=== PATIENT | female | born 1950 | race Caucasian/White ===

== ENCOUNTER 2019-06-09 12:23 | Emergency (ER) | payer MEDICARE ==
--- NOTE | 2019-06-09 13:57 | EDM.PDOC ---
ED HPI GENERAL MEDICAL PROBLEM - General Chief Complaint: Cardiovascular Problem Stated Complaint: HIGH BLOOD PRESSURE Time Seen by Provider: 06/09/19 13:30 Source of Information: Reports: Patient History Limitations: Reports: No Limitations - History of Present Illness INITIAL COMMENTS - FREE TEXT/NARRATIVE: 61-year-old female with a long history of hypertension, is concerned that her blood pressure is much more elevated this week and then it typically is. 2 days ago she had a near syncopal episode while at an outdoor event, and since that time she's been taking her blood pressure and it continues to be elevated. Her systolic is running anywhere from the 150-160 range up to 200 which is unusual. She feels a little lightheaded but otherwise feels fine. She denies getting into extra salt. She just put her dog down less than 2 weeks ago and it's been very stressful. Onset: Unknown/Unsure Associated Symptoms: Reports: Syncope (A near syncopal episode 2 days ago), Other (Mild dizziness or lightheaded feeling). Denies: Chest Pain, Cough, Diaphoresis - Related Data Allergies Allergy/AdvReac Type Severity Reaction Status Date / Time No Known Allergies Allergy Verified 02/03/14 16:43 Home Meds: Home Meds Folic Acid 1 mg PO DAILY 06/09/19 [History] Losartan Potassium 100 mg PO DAILY 06/09/19 [History] Methotrexate Sodium [Methotrexate] 2.5 mg PO DAILY 06/09/19 [History] Metoprolol Tartrate 100 mg PO DAILY 06/09/19 [History] Omeprazole 40 mg PO DAILY 06/09/19 [History] hydroCHLOROthiazide [Hydrochlorothiazide] 25 mg PO DAILY 06/09/19 [History] Past Medical History Cardiovascular History: Reports: Hypertension Gastrointestinal History: Reports: GERD Genitourinary History: Reports: UTI, Recurrent Musculoskeletal History: Reports: Other (See Below) Other Musculoskeletal History: RA, disorder of bone and cartilage, Arthropathy Endocrine/Metabolic History: Reports: Osteoporosis Oncologic (Cancer) History: Reports: Breast - Infectious Disease History Infectious Disease History: Reports: Other (See Below) Other Infectious Disease History: MDRO - Past Surgical History GI Surgical History: Reports: Cholecystectomy Other GI Surgeries/Procedures: Left thyroid nodule Social & Family History - Family History Cardiac: Reports: Hypertension - Tobacco Use Smoking Status *Q: Never Smoker - Caffeine Use Caffeine Use: Reports: Coffee - Recreational Drug Use Recreational Drug Use: No ED ROS GENERAL - Review of Systems Review Of Systems: See Below Constitutional: Denies: Fever, Chills, Malaise HEENT: Denies: Vision Change Respiratory: Denies: Shortness of Breath Cardiovascular: Denies: Chest Pain GI/Abdominal: Denies: Abdominal Pain, Nausea, Vomiting : Reports: Other (Some increased urination with dysuria) Skin: Reports: No Symptoms Neurological: Reports: Other (Near syncopal episode 2 days ago) Psychiatric: Reports: Anxiety (Under significant stress) ED EXAM, GENERAL - Physical Exam Exam: See Below Exam Limited By: No Limitations General Appearance: Alert, No Apparent Distress Eye Exam: Bilateral Eye: Normal Inspection Head: Atraumatic Respiratory/Chest: No Respiratory Distress, Lungs Clear Cardiovascular: Regular Rate, Rhythm, No Murmur. No: Extra Beats GI/Abdominal: Non-Tender Neurological: Alert, Oriented Psychiatric: Normal Affect, Normal Mood Skin Exam: Warm, Dry Course - Vital Signs Last Recorded V/S: Last Vital Signs Temp 97.8 F 06/09/19 13:17 Pulse 61 06/09/19 14:41 Resp 20 06/09/19 13:17 BP 188/93 H 06/09/19 15:20 Pulse Ox 99 06/09/19 13:17 - Orders/Labs/Meds Labs: Laboratory Tests 06/09/19 06/09/19 06/09/19 Range/Units 13:43 14:43 14:43 WBC 7.1 (4.5-11.0) K/uL RBC 4.28 (3.30-5.50) M/uL Hgb 12.6 (12.0-15.0) g/dL Hct 38.4 (36.0-48.0) % MCV 90 (80-98) fL MCH 29 (27-31) pg MCHC 33 (32-36) % Plt Count 304 (150-400) K/uL Neut % (Auto) 59 (36-66) % Lymph % (Auto) 33 (24-44) % Schuyler % (Auto) 8 H (2-6) % Eos % (Auto) 1 L (2-4) % Baso % (Auto) 0 (0-1) % Sodium 133 L (140-148) mmol/L Potassium 2.9 L* (3.6-5.2) mmol/L Chloride 95 L (100-108) mmol/L Carbon Dioxide 27 (21-32) mmol/L Anion Gap 13.9 (5.0-14.0) mmol/L BUN 15 (7-18) mg/dL Creatinine 1.0 (0.6-1.0) mg/dL Est Cr Clr Drug Dosing 42.59 mL/min Estimated GFR (MDRD) 55 L (>60) Glucose 112 H (74-106) mg/dL Calcium 9.3 (8.5-10.1) mg/dL Total Bilirubin 0.5 (0.2-1.0) mg/dL AST 22 (15-37) U/L ALT 30 (12-78) U/L Alkaline Phosphatase 76 (46-116) U/L Total Protein 7.5 (6.4-8.2) g/dL Albumin 3.8 (3.4-5.0) g/dL Globulin 3.7 H (2.3-3.5) g/dL Albumin/Globulin Ratio 1.0 L (1.2-2.2) Urine Color Yellow (YELLOW) Urine Appearance Slightly cloudy A (CLEAR) Urine pH 6.0 (5.0-8.0) Ur Specific [place] 1.015 (1.008-1.030) Urine Protein Negative (NEGATIVE) mg/dL Urine Glucose (UA) Negative (NEGATIVE) mg/dL Urine Ketones Negative (NEGATIVE) mg/dL Urine Occult Blood Negative (NEGATIVE) Urine Nitrite Negative (NEGATIVE) Urine Bilirubin Negative (NEGATIVE) Urine Urobilinogen 0.2 (0.2-1.0) EU/dL Ur Leukocyte Esterase Trace H (NEGATIVE) Urine RBC Not seen (0-5) Urine WBC 0-5 (0-5) Ur Epithelial Cells Not seen Amorphous Sediment Not seen Urine Bacteria Not seen Urine Mucus Not seen Meds: Medications Discontinued Medications Generic Name Dose Route Start Last Admin Trade Name Freq PRN Reason Stop Dose Admin Metoprolol Tartrate 50 mg 06/09/19 14:28 06/09/19 14:41 Lopressor PO 06/09/19 14:29 50 mg ONETIME ONE Administration - Re-Assessments/Exams Free Text/Narrative Re-Assessment/Exam: 06/09/19 13:57 A UA was obtained. 06/09/19 14:29 UA was negative. Patient was given an extra 50 mg of oral metoprolol as her systolic blood pressure consistently stayed just above 200. She will continue her regular medications. 06/09/19 14:30 We are about to discharge the patient but she was still extremely anxious about her blood pressure so CBC and CMP were drawn. Her potassium returned 2.9 but otherwise labs were generally reassuring. Her blood pressure normalized while waiting for the labs. Systolic blood pressures were running 170s and 180s. I discussed potassium replacement, she wants to eat a banana daily instead of take more pills. I strongly encouraged her to watch her salt intake and schedule her recheck this week with her primary provider. Departure - Departure Time of Disposition: 16:08 Disposition: Home, Self-Care 01 Condition: Good Clinical Impression: Essential hypertension Instructions: Hypertension Referrals: Isra Ha MD [Primary Care Provider] - Forms: ED Department Discharge Care Plan Goals: Continue your current medications and avoid any extra salt intake. Call for an appointment with your regular doctor tomorrow to follow up with blood pressure and potassium level. You can increase your metoprolol up to 100 mg twice daily if needed, and eat at least 1 full banana daily.
[2019-06-09] MEDS ORDERED: Metoprolol Tartrate 50 MG Tab PO ONE (14:28)
[2019-06-09 15:24] VITALS: BP 188/93
== END 2019-06-09 16:08 | disposition home or self-care (01) ==
LOC: JP.ED 12:23
DX: I10 Essential (primary) hypertension (principal); K21.9 Gastro-esophageal reflux disease without esophagitis; Z79.899 Other long term (current) drug therapy
CPT/HCPCS: 36415; 80053; 81001; 85025; 99283; A9270

== ENCOUNTER 2021-01-07 07:12 | Day surgery (SDC) | payer MEDICARE ==
[2021-01-07] MEDS ORDERED: fentaNYL 100 MCG/2 ML SDV ONE (07:40)
[2021-01-07] MEDS ORDERED: Midazolam 1 MG/ML 2 ML SDV ONE (07:40)
[2021-01-07] MEDS ORDERED: Propofol 200 MG/20 ML SDV ONE (07:40)
[2021-01-07] MEDS ORDERED: Sodium Chloride 0.9% 1,000 ML IV SCH (08:30)
[2021-01-07 10:13] VITALS: BP 136/78; PULSE 82
--- NOTE | 2021-01-07 11:47 | OR ---
DATE OF PROCEDURE: 01/07/2021 SURGEON: Brendan Hernández MD PROCEDURE: Colonoscopy. FINDINGS: 1. Diverticulosis, moderate throughout sigmoid colon but mostly concentrated in classic pattern on the sigmoid colon. 2. No evidence of active bleeding or old or new blood. 3. Sigmoid colon polyp, approximately 5 mm, completely removed using cold biopsy forceps. COMPLICATIONS: None. SENIOR FINANCIAL REPORTING ACCOUNTANT: None. ANESTHESIA: MAC. PREOPERATIVE DIAGNOSIS: Hematochezia/history of diverticulitis. POSTOPERATIVE DIAGNOSIS: Hematochezia/history of diverticulitis. RISKS: Risks, benefits, alternatives, and limitations including, but not limited to infection, bleeding, perforation, false positives, false negatives were explained to the patient and she wished to proceed. PROCEDURE IN DETAIL: The patient was placed in left lateral decubitus position. Digital rectal exam was performed without abnormality. Scope was introduced and advanced atraumatically to the ileocecal valve. A photo was taken of this. Scope was brought back to the ascending, transverse, descending colon, and retroflexed. No evidence of old or new blood. No masses. The aforementioned polyp was less than 5 mm, completely removed using cold biopsy forceps. The diverticulosis would be described as mild to moderate, limited mostly to sigmoid colon, but did have a few diverticula throughout the entire colon. No evidence of diverticulitis or active bleeding. No abnormalities except for the aforementioned polyp intakes. No abnormalities on retroflexion. Prep was acceptable, approximately 90% of the luminal surface could be seen. The patient did have a significant tortuous sigmoid colon. Greater than 8 minutes was spent removing the scope. The patient tolerated the procedure well. Brendan Hernández MD /[id number]
== END 2021-01-07 10:10 | disposition home or self-care (01) ==
LOC: JP.SDS 07:12
PROVIDERS: ATTEND Surgery
DX: D12.5 Benign neoplasm of sigmoid colon (principal); K57.30 Diverticulosis of large intestine without perforation or abscess without bleeding; I10 Essential (primary) hypertension; E78.5 Hyperlipidemia, unspecified; K21.9 Gastro-esophageal reflux disease without esophagitis
CPT/HCPCS: 45380; J2250; J2704; J3010; J7030

== ENCOUNTER 2021-07-23 21:27 | Emergency (ER) | payer MEDICARE ==
[2021-07-23 22:26] VITALS: BP 188/95; PULSE 83
[2021-07-23] MEDS ORDERED: Famotidine 20 MG Tab PO ONE (22:34)
[2021-07-23] MEDS ORDERED: predniSONE 20 MG Tab PO ONE (22:35)
[2021-07-23] MEDS ORDERED: diphenhydrAMINE 25 MG Cap PO ONE (22:35)
--- NOTE | 2021-07-23 22:41 | EDM.PDOC ---
ED HPI GENERAL MEDICAL PROBLEM - General Chief Complaint: Allergic Reaction Stated Complaint: HIVES Time Seen by Provider: 07/23/21 22:25 Source of Information: Reports: Patient, Old Records, RN History Limitations: Reports: No Limitations - History of Present Illness INITIAL COMMENTS - FREE TEXT/NARRATIVE: 71 yo female went to the clinic recently for bilateral upper/lateral abdominal pain and was given Cipro and Flagyl presumptively for diverticulitis without any testing. She has had both of these antibiotics in the past without issue, but this time she just got started on this new dosing regimen and developed some swelling/itching in her hands plus tonight lip swelling and some hives. No trouble breathing or swallowing. She took some Benedryl about 8 pm tonight and is just a little better since then. Onset: Today, Gradual Onset Date: 07/23/21 Duration: Hour(s):, Improving (slightly since Benedryl) Location: Reports: Generalized Quality: Reports: Other (itching) Severity: Mild Improves with: Reports: Medication Worsens with: Reports: Other (? Cipro and Flagyl) Context: Reports: Other (See HPI) Associated Symptoms: Reports: No Other Symptoms Treatments DIRECTOR OF CAREER SERVICES: Reports: Other (see below) (See HPI) - Related Data Allergies Allergy/AdvReac Type Severity Reaction Status Date / Time amlodipine Allergy Swelling Verified 07/23/21 22:05 morphine Allergy Rash Verified 07/23/21 22:05 Home Meds: Home Meds Metoprolol Tartrate 50 mg PO BID 06/09/19 [History] Omeprazole 40 mg PO DAILY 06/09/19 [History] hydroCHLOROthiazide [Hydrochlorothiazide] 25 mg PO DAILY 06/09/19 [History] Acetaminophen/Diphenhydramine [Tylenol Pm Ex-Strength Caplet] 2 each PO BEDTIME 01/05/21 [History] Calcium Carbonate/Vitamin D3 [Calcium 500 + Vit D Caplet] 1 each PO DAILY 01/05/21 [History] Cranberry Fruit Extract [Cranberry] 500 mg PO DAILY 01/05/21 [History] Losartan [Cozaar] 100 mg PO DAILY 01/05/21 [History] hydrALAZINE [Apresoline] 25 mg PO BID 01/05/21 [History] Past Medical History HEENT History: Reports: Cataract Cardiovascular History: Reports: Hypertension Respiratory History: Reports: None Gastrointestinal History: Reports: GERD Genitourinary History: Reports: UTI, Recurrent SURGICAL ASST History: Reports: Musculoskeletal History: Reports: Other (See Below) Other Musculoskeletal History: RA, disorder of bone and cartilage, Arthropathy Neurological History: Reports: None Psychiatric History: Reports: None Endocrine/Metabolic History: Reports: Osteoporosis Hematologic History: Reports: None Oncologic (Cancer) History: Reports: Breast Dermatologic History: Reports: None - Infectious Disease History Infectious Disease History: Reports: None, Other (See Below) Other Infectious Disease History: MDRO - Past Surgical History HEENT Surgical History: Reports: Tonsillectomy Cardiovascular Surgical History: Reports: None GI Surgical History: Reports: Cholecystectomy, Colonoscopy, Other (See Below) Other GI Surgeries/Procedures: Left thyroid nodule, diverticulitis surgery 2020 Female Surgical History: Reports: Section, Hysterectomy Social & Family History - Family History Cardiac: Reports: Hypertension - Tobacco Use Tobacco Use Status *Q: Never Tobacco User - Caffeine Use Caffeine Use: Reports: Coffee - Recreational Drug Use Recreational Drug Use: No ED ROS ALLERGIC REACTION - Review of Systems Review Of Systems: See Below Constitutional: Reports: No Symptoms HEENT: Reports: Other (lip swelling) Respiratory: Reports: No Symptoms Cardiovascular: Reports: No Symptoms GI/Abdominal: Reports: No Symptoms : Reports: No Symptoms Musculoskeletal: Reports: No Symptoms Skin: Reports: Urticaria Neurological: Reports: No Symptoms Psychiatric: Reports: No Symptoms ED EXAM GENERAL NO PERIP PULSE - Physical Exam Exam: See Below Exam Limited By: No Limitations General Appearance: Alert, WD/WN, No Apparent Distress Eye Exam: Bilateral Eye: Normal Inspection Ears: Normal External Exam, Normal Canal, Hearing Grossly Normal, Normal TMs Nose: Normal Inspection, No Blood Throat/Mouth: Normal Inspection, Normal Oropharynx, Normal Voice, No Airway Compromise. No: Normal Lips (lips slightly swollen) Head: Atraumatic, Normocephalic Neck: Normal Inspection Respiratory/Chest: No Respiratory Distress, Lungs Clear, Normal Breath Sounds, No Accessory Muscle Use. No: Wheezing Cardiovascular: Regular Rate, Rhythm, No Edema. No: Tachycardia Extremities: Other (hands slightly swollen and reddened. ) Neurological: Alert, Oriented, CN II-XII Intact, Normal Cognition, No Motor/Sensory Deficits Psychiatric: Normal Affect, Normal Mood Skin Exam: Warm, Dry, Intact, Normal Color. No: No Rash (has a couple hives to the neck) Course - Vital Signs Last Recorded V/S: Last Vital Signs Temp 36.1 C 07/23/21 22:02 Pulse 83 07/23/21 22:26 Resp 16 07/23/21 22:02 BP 188/95 H 07/23/21 22:26 Pulse Ox 98 07/23/21 22:26 - Orders/Labs/Meds Meds: Medications Discontinued Medications Generic Name Dose Route Start Last Admin Trade Name Jordy PRN Reason Stop Dose Admin Diphenhydramine HCl 25 mg 07/23/21 22:35 07/23/21 22:41 Diphenhydramine 25 Mg Cap PO 07/23/21 22:36 25 mg ONETIME ONE Administration Famotidine 40 mg 07/23/21 22:34 07/23/21 22:42 Famotidine 20 Mg Tab PO 07/23/21 22:35 40 mg ONETIME ONE Administration Prednisone 20 mg 07/23/21 22:35 07/23/21 22:41 Prednisone 20 Mg Tab PO 07/23/21 22:36 20 mg ONETIME ONE Administration - Re-Assessments/Exams Free Text/Narrative Re-Assessment/Exam: 07/23/21 23:58 slight improvement in her allergic sx's, will discharge Departure - Departure Time of Disposition: 23:58 Disposition: Home, Self-Care 01 Condition: Fair Clinical Impression: Allergic reaction Qualifiers: Encounter type: initial encounter Qualified Code(s): T78.40XA - Allergy, un specified, initial encounter - Discharge Information *PRESCRIPTION DRUG MONITORING PROGRAM REVIEWED*: Not Applicable *COPY OF PRESCRIPTION DRUG MONITORING REPORT IN PATIENT LUISITO: Not Applicable Instructions: Allergies, Adult, [id number] Referrals: Isra Ha MD [Primary Care Provider] - Forms: ED Department Discharge Additional Instructions: Continue diphenhydramine 50 mg every 4 hrs until all your allergy symptoms have resolved. Stop your current antibiotics. Recheck with your provider on Sunday, return if worse. Sepsis Event Note (ED) - Evaluation Sepsis Screening Result: No Definite Risk - Focused Exam Vital Signs: Vital Signs Temp Pulse Resp BP Pulse Ox 07/23/21 22:26 83 188/95 H 98 07/23/21 22:02 36.1 C 81 16 184/76 H 96 07/23/21 21:56 36.1 C 81 16 184/76 H 96
== END 2021-07-24 00:14 | disposition home or self-care (01) ==
LOC: JP.ED 21:27
DX: L29.9 Pruritus, unspecified (principal); T37.3X5A Adverse effect of other antiprotozoal drugs, initial encounter; T36.8X5A Adverse effect of other systemic antibiotics, initial encounter; I10 Essential (primary) hypertension; K21.9 Gastro-esophageal reflux disease without esophagitis; Z88.5 Allergy status to narcotic agent; Z79.899 Other long term (current) drug therapy
CPT/HCPCS: 99283; A9270; J7512

== ENCOUNTER 2021-08-13 09:29 | Inpatient (IN) | payer MEDICARE ==
[~2021-08-13 09:29] MED LIST: Acetaminophen 500 MG Tab PO ONE
[2021-08-13] MEDS ORDERED: Dextrose 5%-Lactated Ringers 1,000 ML IV SCH (10:30)
[2021-08-13 10:38] LABS: CORONAVIRUS COVID-19 NAA NEGATIVE (NEGATIVE)
[2021-08-13] MEDS ORDERED: Propofol 200 MG/20 ML SDV ONE ×2 (11:09→11:32)
[2021-08-13] MEDS ORDERED: Lidocaine 2% 5 ML SDV ONE (11:09)
[2021-08-13] MEDS ORDERED: Dextrose 5%-Lact Ringers w/KCl 1,000 ML IV SCH (13:30)
[2021-08-13] MEDS: Potassium Chloride 20 MEQ Tab.ER PO SCH ×4 (14:18→21:34)
[2021-08-13] MEDS ORDERED: Losartan 50 MG Tab PO ONE (14:30)
[2021-08-13] MEDS ORDERED: diphenhydrAMINE 25 MG Cap PO PRN (19:55)
[2021-08-13] MEDS ORDERED: Acetaminophen 325 MG Tab PO PRN (19:56)
[2021-08-13] MEDS ORDERED: Metoprolol Tartrate 50 MG Tab PO SCH (21:00)
[2021-08-13] MEDS ORDERED: Losartan 50 MG Tab PO SCH (21:00)
[2021-08-13] MEDS ORDERED: hydrALAZINE 25 MG Tab PO SCH (21:00)
[2021-08-14] MEDS ORDERED: Dexamethasone 4 MG/ML SDV ONE (06:46)
[2021-08-14] MEDS ORDERED: Propofol 200 MG/20 ML SDV ONE (06:46)
[2021-08-14] MEDS ORDERED: Glycopyrrolate 0.2 MG/ML 5 ML MDV ONE (06:46)
[2021-08-14] MEDS ORDERED: fentaNYL 250 MCG/5 ML SDV ONE (06:46)
[2021-08-14] MEDS ORDERED: Ondansetron 4 MG/2 ML SDV ONE (06:46)
[2021-08-14] MEDS ORDERED: Rocuronium 50 MG/5 ML Vial ONE ×2 (06:46→09:07)
[2021-08-14] MEDS ORDERED: Lidocaine 2% 5 ML SDV ONE ×2 (06:48→07:22)
[2021-08-14] MEDS ORDERED: hydrALAZINE 25 MG Tab PO ONE (07:00)
[2021-08-14] MEDS ORDERED: Sulfamethoxazole/Trimethoprim 800-160 MG Tab PO ONE (07:00)
[2021-08-14] MEDS ORDERED: Acetaminophen 500 MG Tab PO ONE (07:00)
[2021-08-14] MEDS ORDERED: Losartan 50 MG Tab PO ONE (07:00)
[2021-08-14] MEDS ORDERED: Metoprolol Tartrate 50 MG Tab PO ONE (07:00)
[2021-08-14] MEDS ORDERED: Hydrochlorothiazide 25 MG Tab PO ONE (07:00)
[2021-08-14] MEDS ORDERED: Meropenem 500 MG SDV ONE (07:08)
[2021-08-14] MEDS ORDERED: Midazolam 1 MG/ML 2 ML SDV ONE (07:25)
[2021-08-14] MEDS ORDERED: Meropenem 500 MG in Sodium Chloride 0.9% 50 ML IV ONE (07:30)
[2021-08-14] MEDS ORDERED: Ropivacaine 38 ML, dexAMETHasone 8 MG, EPINEPHrine 0.4 MG, Sodium Chloride 0.9% 39.6 ML NERVRT SCH ×4 (08:00)
[2021-08-14] MEDS ORDERED: Naloxone 0.4 MG/ML SDV IVPUSH PRN (08:00)
[2021-08-14] MEDS ORDERED: Naloxone 0.4 MG/ML SDV IV PRN ×2 (08:00→12:00)
[2021-08-14] MEDS ORDERED: Phenylephrine 1% 10 MG/ML SDV ONE (08:13)
[2021-08-14] MEDS ORDERED: Sodium Chloride 0.9% 10 ML ONE (08:13)
[2021-08-14] MEDS ORDERED: Neostigmine Methylsulfate 1 MG/ML 5 ML Syringe ONE (09:11)
[2021-08-14] MEDS ORDERED: Ketoconazole 2% Crm 30 GM Tube ONE (09:40)
[2021-08-14] MEDS ORDERED: ePHEDrine 50 MG/ML SDV ONE (09:48)
[2021-08-14] MEDS ORDERED: hydrOXYzine HCL 100 MG/2 ML SDV IM PRN (11:40)
[2021-08-14] MEDS ORDERED: ePHEDrine 50 MG/ML SDV IV PRN (12:00)
[2021-08-14] MEDS: fentaNYL 2,500 MCG in Sodium Chloride 0.9% 200 ML EPIDUR SCH (12:33)
[2021-08-14] MEDS: Dextrose 5%-Lactated Ringers 1,000 ML IV SCH ×2 (12:34→19:05)
[2021-08-14] MEDS: Pantoprazole 40 MG Vial IV SCH (12:34)
[2021-08-14] MEDS ORDERED: HYDROmorphone/Normal Saline 15 MG/30 ML PCA IV PRN (13:39)
[2021-08-14] MEDS: Acetaminophen 325 MG Tab PO SCH ×2 (13:49→20:11)
[2021-08-14] MEDS: Meropenem 500 MG in Sodium Chloride 0.9% 50 ML IV SCH ×2 (15:07→22:18)
[2021-08-14] MEDS: diphenhydrAMINE 50 MG/ML SDV IVPUSH PRN (20:12)
[2021-08-14] MEDS: Metoprolol Tartrate 50 MG Tab PO SCH (20:13)
[2021-08-14] MEDS: hydrALAZINE 25 MG Tab PO SCH (20:14)
[2021-08-15] MEDS: Acetaminophen 325 MG Tab PO SCH ×4 (04:01→20:22)
[2021-08-15] MEDS: Meropenem 500 MG in Sodium Chloride 0.9% 50 ML IV SCH ×3 (05:45→21:51)
[2021-08-15] MEDS: fentaNYL 2,500 MCG in Sodium Chloride 0.9% 200 ML EPIDUR SCH (06:54)
[2021-08-15] MEDS: Dextrose 5%-Lactated Ringers 1,000 ML IV SCH ×3 (06:58→17:51)
[2021-08-15] MEDS ORDERED: Benzocaine/Cetylpyridinium/Menthol Lozenge MUCMEM PRN (07:07)
--- NOTE | 2021-08-15 07:58 | PN ---
DATE OF SERVICE: 08/15/2021 SUBJECTIVE: Barby is postop day 1. Her vital signs have been stable with exception she did have a couple of lower blood pressures during the night and systolic ran 109 to 118 and diastolic 44 to 58 and 44 to 49. Current blood pressure is 139/58. Oral intake 1550. Urine output via Gomez catheter is 1185. VIRAJ drain put out 40 mL of a light red drainage. Pain is controlled with an epidural. LABS: This morning, hemoglobin 10.5. Magnesium 1.3. BNP 855. She does report a sore dry throat from intubation. REVIEW OF SYSTEMS: Remainder of review of systems negative for any pertinent positives or negatives. OBJECTIVE: GENERAL: Barby Barnes is a pleasant 71-year-old female. She is alert and oriented. VITAL SIGNS: TPR 98.3, 67, 16, blood pressure 139/58, O2 by pulse oximetry 97% on 1.5 L. HEENT: Negative. NECK: Supple. HEART: Regular rate and rhythm. LUNGS: Clear. ABDOMEN: Dressings dry and intact. Abdominal binder is on. EXTREMITIES: Without peripheral edema. SCDs are currently off. She states that around 3 a.m., her leg started to itch quite a bit and she could not stand to have them on anymore. She plans to put them back on. SKIN: Without rash. ASSESSMENT: Exploratory laparotomy with: 1. Rectosigmoid resection and coloproctostomy. 2. Drainage of pericolonic abscess. 3. Resection of peritoneal implants, proximal sigmoid colon x2. 4. Mobilization of omentum into pelvis. POSTOPERATIVE DIAGNOSES: Persistent sigmoid colon diverticulitis with focal pericolonic abscess. 1. Peritoneal implant on surface of proximal sigmoid colon x2 (0.4 cm cystic and 1.2 cm solid). 2. Date of procedure: 08/14/2021. Surgeon: Johnny Dan MD. PLAN: 1. Decrease IV to 100 mL/hr. 2. Magnesium 2 g IV q.6 hours x72 hours. 3. Zithromax 125 mg IV q.12 hours. 4. Cepacol throat lozenges 1 every 2 hours. 5. Schedule and have consent signed for delayed primary closure with IV sedation and tap block for 08/16/2021. Surgeon: Johnny Dan MD. Time of procedure 0715. N.p.o. at 2000. 6. Check CBC, CMP, phos, and BNP in a.m. 7. We will evaluate p.r.n. or in a.m. Claudette Romo PA-C /[id number]
[2021-08-15] MEDS: hydrALAZINE 25 MG Tab PO SCH ×2 (08:55→20:23)
[2021-08-15] MEDS: Losartan 50 MG Tab PO SCH (08:56)
[2021-08-15] MEDS: Docusate Sodium 100 MG Cap PO SCH ×2 (08:56→20:23)
[2021-08-15] MEDS: Bisacodyl 5 MG Tab PO SCH ×2 (08:57→20:23)
[2021-08-15] MEDS: Hydrochlorothiazide 25 MG Tab PO SCH (08:59)
[2021-08-15] MEDS: Metoprolol Tartrate 50 MG Tab PO SCH ×2 (09:00→20:24)
[2021-08-15] MEDS: Sulfamethoxazole/Trimethoprim 800-160 MG Tab PO SCH (09:01)
[2021-08-15] MEDS: CRANBERRY EXTRACT 500 MG PO SCH (09:01)
[2021-08-15] MEDS: Azithromycin 125 MG in Sodium Chloride 0.9% 150 ML IV SCH ×2 (10:41→20:24)
--- NOTE | 2021-08-15 11:25 | OR ---
DATE OF PROCEDURE: 08/13/2021 SURGEON: Johnny Dan MD PREOPERATIVE DIAGNOSES: 1. Persistent left colonic diverticulitis. 2. Recent rectal bleeding. POSTOPERATIVE DIAGNOSES: 1. Persistent left colonic diverticulitis. 2. Excoriated hemorrhoids would appear to be likely bleeding source. PROCEDURE PERFORMED: Flexible colonoscopy with injection of Domonique ink at proximal level of inflamed colon ([id number]). ANESTHESIA: IV sedation. INDICATION FOR PROCEDURE: The patient presents with some recent rectal bleeding along with what appears to be some persistent smoldering diverticulitis. CT scans obtained yesterday showed an area of inflammation in the lower sigmoid colon. The patient does have a history of perforated [place]itis last [place] and has had as more or less some chronic abdominal pain requiring antibiotics intermittently since that period. More recently, she has had some significant rectal bleeding. The plan is to proceed with a colonoscopy with biopsies and/or polypectomy as indicated. Potential risks including bleeding and perforation were discussed, and the patient wishes to proceed. DETAILS OF PROCEDURE: The patient was taken to the operating room and placed in a left lateral decubitus position. IV sedation was administered after which the initial digital exam was performed and was unremarkable. The colonoscope was then passed into the rectum. This showed very engorged, inflamed-appearing mixed hemorrhoids. No blood or bleeding was seen candidates for likely bleeding source, particularly given the patient's clinical history. The scope was then eventually passed to the cecum. The prep was quite good. In the lower sigmoid colon, there were 2 diverticula that had some purulent material coming from the surface with some reddening around the diverticular opening consistent with smoldering diverticulitis. The diverticula essentially ended then in the proximal sigmoid colon. Apart from that, there were no areas of polyps or signs of neoplasia, and no areas of colitis per se. At this point, Domonique ink was injected at the proximal level of the inflamed colon to help guide intraoperative resection. The submucosal injection of Domonique ink was placed in 2 locations at a point just proximal to the level of the initiation of the colonic inflammation. Scope was then withdrawn and the procedure concluded. There were no evident complications. Johnny Dan MD Job #: [id number]
[2021-08-15] MEDS: Magnesium Sulfate/Water 2 GM in Premix Bag 1 BAG IV SCH ×3 (12:15→22:44)
[2021-08-15] MEDS: Pantoprazole 40 MG Vial IV SCH (13:27)
[2021-08-15] MEDS: diphenhydrAMINE 50 MG/ML SDV IVPUSH PRN (20:29)
[2021-08-16] MEDS: Acetaminophen 325 MG Tab PO SCH ×4 (02:21→20:31)
[2021-08-16] MEDS: Magnesium Sulfate/Water 2 GM in Premix Bag 1 BAG IV SCH ×4 (03:26→21:51)
[2021-08-16] MEDS: Dextrose 5%-Lactated Ringers 1,000 ML IV SCH ×2 (05:32→18:11)
[2021-08-16] MEDS: Meropenem 500 MG in Sodium Chloride 0.9% 50 ML IV SCH (05:35)
[2021-08-16] MEDS ORDERED: Lidocaine 1% with EPINEPHrine 1:100,000 50 ML MDV ONE (06:36)
[2021-08-16] MEDS ORDERED: Meropenem 500 MG SDV ONE (06:37)
[2021-08-16] MEDS: Bupivacaine 0.5% 50 ML MDV ONE ×2 (07:13→07:30)
[2021-08-16] MEDS ORDERED: Ropivacaine 38 ML, dexAMETHasone 8 MG, EPINEPHrine 0.4 MG, Sodium Chloride 0.9% 39.6 ML NERVRT SCH ×4 (07:30)
[2021-08-16] MEDS: Docusate Sodium 100 MG Cap PO SCH ×2 (08:30→20:32)
[2021-08-16] MEDS: Losartan 50 MG Tab PO SCH (08:30)
[2021-08-16] MEDS: hydrALAZINE 25 MG Tab PO SCH ×2 (08:30→20:29)
[2021-08-16] MEDS: Bisacodyl 5 MG Tab PO SCH ×2 (08:30→20:32)
[2021-08-16] MEDS: CRANBERRY EXTRACT 500 MG PO SCH (08:31)
[2021-08-16] MEDS: Sulfamethoxazole/Trimethoprim 800-160 MG Tab PO SCH (08:31)
[2021-08-16] MEDS: Hydrochlorothiazide 25 MG Tab PO SCH (08:31)
[2021-08-16] MEDS: Metoprolol Tartrate 50 MG Tab PO SCH ×2 (08:31→20:33)
[2021-08-16] MEDS: Azithromycin 125 MG in Sodium Chloride 0.9% 150 ML IV SCH ×2 (08:34→20:34)
--- NOTE | 2021-08-16 08:37 | PN ---
DATE OF SERVICE: 08/16/2021 SUBJECTIVE: Barby reports her pain is controlled with epidural, and she has had no nausea. Vital signs have been stable. Oral intake 1580. Urine output 1150 via Gomez catheter. VIRAJ drain put out 45 mL of a light red drainage. REVIEW OF SYSTEMS: Remainder of review of systems negative for any pertinent positives or negatives. LABORATORY DATA: Hemoglobin 10, white count 12.5, creatinine 1.1, GFR is 49, and BNP 998. OBJECTIVE: GENERAL: Barby is a pleasant 71-year-old female. She is alert and orientated. VITAL SIGNS: TPR 98.7, 75, 18, and blood pressure 117/53. HEENT: Negative. NECK: Supple. HEART: Regular rate and rhythm. LUNGS: Clear. ABDOMEN: Dressing dry and intact. Abdominal binder is on. EXTREMITIES: Without peripheral edema. ASSESSMENT: 1. Flexible colonoscopy with injection of Domonique ink at proximal level of inflamed colon for persistent colonic diverticulitis and excoriated hemorrhoids. Date of procedure: 08/13/2021. Surgeon: Johnny Dan MD. 2. Exploratory laparotomy with: a. Rectosigmoid resection and coloproctostomy. b. Drainage of pericolonic abscess. c. Resection of peritoneal implants of proximal sigmoid colon x2. d. Mobilization of omentum into pelvis. POSTOPERATIVE DIAGNOSES: 1. Persistent sigmoid colon diverticulitis and focal pericolonic abscess. 2. Peritoneal implant on surface of proximal sigmoid colon x2 (0.4 cm cystic and 1.2 cm solid). Date of procedure: 08/14/2021. Surgeon: Johnny Dan MD. PLAN: Orders to be written after delayed primary closure. Claudette Romo PA-C /[id number]
[2021-08-16] MEDS: fentaNYL 2,500 MCG in Sodium Chloride 0.9% 200 ML EPIDUR SCH (08:38)
--- NOTE | 2021-08-16 10:25 | OR ---
DATE OF PROCEDURE: 08/14/2021 SURGEON: Johnny Dan MD PREOPERATIVE DIAGNOSIS: Persistent sigmoid colon diverticulitis. POSTOPERATIVE DIAGNOSES: 1. Persistent sigmoid colon diverticulitis with focal pericolonic abscess. 2. Peritoneal implants on surface of proximal sigmoid colon x2. OPERATIVE PROCEDURES: Exploratory laparotomy with: 1. Rectosigmoid resection with coloproctostomy (40196). 2. Drainage of pericolonic abscess (75308). 3. Excision of cystic peritoneal implant, proximal sigmoid colon (87908). 4. Excision of a more solid peritoneal implant, proximal sigmoid colon (25401). 5. Mobilization of splenic flexure to facilitate a tension-free coloproctostomy (21629). 6. Mobilization of omentum into pelvis to displace small bowel from pelvic and abdominal wall (69842). ANESTHESIA: General plus epidural. INDICATIONS FOR PROCEDURE: This is a 71-year-old presenting with persistent lower abdominal pain and requirement of antibiotics for a persistent period of time. The patient did have perforated diverticulitis, which was treated nonoperatively in the [facility]. At this point, the patient did continue to have some lower abdominal pain. Colonoscopy yesterday showed some areas of persistent diverticulitis with 2 [id number] diverticula. She continued having purulent drainage from her orifice. Had a discussion. Plan will be to proceed with sigmoid resection with anastomosis. Potential risks including bleeding, infection, leaks from anastomosis might require a temporary colostomy, possible recurrence of diverticulitis over time, and/or postoperative gastrointestinal bleeding were all reviewed, and the patient wishes to proceed. DETAILS OF PROCEDURE: The patient was taken to the operating room and placed in a supine position. After epidural catheter had been placed, general anesthetic was induced, and she was converted to a lithotomy position. Gomez catheter inserted, and the abdomen prepped and draped. A lower midline incision from the umbilicus down to the pubis was made and carried down through full-thickness abdominal wall. Some adhesions between the omentum and the anterior abdominal wall were taken down, and at that point the area of diverticulitis could be identified by palpation fairly deep within the pelvis. The more proximal sigmoid colon was soft and noninflamed. At this point, the peritoneum adjacent to the more distal sigmoid colon and proximal rectum was divided on each side and anteriorly. Mobilization of the distal sigmoid colon upward. A roughly 5 mL abscess was identified. Aerobic and anaerobic cultures were obtained from this, and after this was drained, no additional purulent material was identified. The mid sigmoid colon was then freed up further with division of the lateral peritoneal reflection. This dissection continued proximally to include takedown of the splenic flexure, colonic attachments along with mobilization of the proximal sigmoid colon and to the left lobe of the rectum without tension. The junction of the mid and proximal 3rd of the sigmoid colon was then divided in the point where there was significant inflammation proximal to this. In the sigmoid colon, there were 2 peritoneal findings. One was a 4 mm cystic lesion and a second one was a 1.2 cm solid lesion. Both of these were sharply excised and sent separately for histologic evaluation. At this point, some attachments of the upper rectum were divided from the adjacent pelvic wall, where there had been some adhesion and scarring from previous perforation. This then allowed division of the rectum with a MITA curved black load. The anvil of a 28 mm EEA stapler was then placed into the proximal, divided sigmoid colon after division of the staple line, and stapling and bringing the shaft out through the most dependent portion of the end of the sigmoid colon to the rectum. Then, the main body of the EEA stapler was brought up through the divided rectal staple line attached to the anvil and the anastomosis between the sigmoid colon and the rectum was then completed by removal of stapler, double donuts of mucosa were noted within it. The anastomosis was reinforced with some 3-0 Vicryl seromuscular stitch along with fibrin sealant with the area being flooded with antibiotic-containing saline solution. The colonoscope was passed into the rectum, anastomosed, clearly visualized, and appeared to be well perfused on both sides, and no air bubbles or other signs of leak were identified. Further antibiotic irrigation was undertaken with a single Marvin-Carrillo drain in the left lateral abdomen and placed across the area of the coloproctostomy from there into the pelvis adhesion formation between the pelvic, abdominal wall, and small bowel. Omentum was then mobilized downward into the pelvis as well and sutured to the pelvic sidewall with some 3-0 Vicryl stitch. At that point, no further problems noted. The midline peritoneum was then reapproximated with #2 Vicryl stitch as was the anterior fascia to limit risk of wound infection and skin and subcutaneous tissue were packed open for a planned delayed primary closure in 48 hours. The patient was taken to the recovery room in satisfactory condition. There were no evident complications. Johnny Dan MD Job #: [id number]
[2021-08-16] MEDS: Pantoprazole 40 MG Vial IV SCH (13:27)
--- NOTE | 2021-08-16 15:16 | PCM.EKG ---
#1 Interpretation EKG Date: 08/13/21 Time: 13:10 Rhythm: NSR Rate (Beats/Min): 55 [place]: Normal P-Wave: Present QRS: Other (Delayed R wave progression in the precordial leads) ST-T: Normal QT: Normal Comparison: NA - No Prior EKG EKG Interpretation Comments: Baseline wander, limb leads
[2021-08-16] MEDS: Ondansetron 4 MG/2 ML SDV IVPUSH PRN (20:26)
[2021-08-16] MEDS: diphenhydrAMINE 50 MG/ML SDV IVPUSH PRN (20:41)
[2021-08-17] MEDS: Acetaminophen 325 MG Tab PO SCH ×4 (02:23→20:29)
[2021-08-17] MEDS: Magnesium Sulfate/Water 2 GM in Premix Bag 1 BAG IV SCH ×4 (04:45→22:28)
[2021-08-17] MEDS: Dextrose 5%-Lactated Ringers 1,000 ML IV SCH ×2 (04:47→16:30)
[2021-08-17] MEDS ORDERED: oxyCODONE 5 MG Tab PO PRN (07:13)
--- NOTE | 2021-08-17 08:04 | PN ---
DATE OF SERVICE: 08/17/2021 SUBJECTIVE: Barby had a delayed primary closure yesterday. She continues to have epidural in. She reports pain is controlled. She has had 2 bowel movements, oral intake 790 and urine output 2150 via Gomez catheter. VIRAJ drain put out 30 mL of a light pink drainage. LABORATORY DATA: Labs this morning: BNP has increased at 1905. Creatinine is 0.9 and GFR is greater than 60. REVIEW OF SYSTEMS: Remainder of review of systems negative for any pertinent positives or negatives. OBJECTIVE: GENERAL: Barby Barnes is a pleasant 71-year-old female. She is alert and orientated. VITAL SIGNS: TPR is 97.3, 82, 18. Blood pressure 137/63. HEENT: Negative. NECK: Supple. HEART: Regular rate and rhythm. LUNGS: Clear. ABDOMEN: Aquacel dressing with an increased amount of blood. There is no rash noted in the pannus area. VIRAJ drain is intact. EXTREMITIES: Without peripheral edema. ASSESSMENT: 1. Flexible colonoscopy with injection of Domonique ink at proximal level of inflamed colon for persistent colonic diverticulitis and excoriated hemorrhoids. Date of procedure: 08/13/2021. Surgeon: Johnny Dan MD. 2. Exploratory laparotomy with: a. Rectosigmoid resection and coloproctostomy. b. Drainage of pericolonic abscess. c. Resection of peritoneal implants of proximal sigmoid colon x2. d. Mobilization of omentum into pelvis. POSTOPERATIVE DIAGNOSES: 1. Persistent sigmoid diverticulitis and focal pericolonic abscess. 2. Peritoneal implant on surface of proximal sigmoid colon x2 (0.4 cm cystic and 1.2 cm solid). Date of procedure: 08/14/2021. Surgeon: Johnny Dan MD. 3. Delayed primary closure for open abdominal incisions. Date of procedure: 08/16/2021. Surgeon: Johnny Dan MD. PLAN: 1. Discontinue Dulcolax oral tabs. 2. Discontinue epidural. 3. Discontinue Gomez catheter. 4. Discontinue Entereg. 5. Oxycodone 5 mg q.4 hours p.r.n. pain. 6. Celebrex 200 mg p.o. b.i.d. scheduled. 7. Lasix 10 mg IV one time. 8. Change Aquacel dressing. 9. Discontinue VIRAJ drain before epidural is out. 10.May shower. 11.Check CBC, CMP, phos and BNP in a.m. 12.Encourage ambulation, use of incentive spirometer. 13.We will evaluate p.r.n. or in a.m. Claudette Romo PA-C /[id number]
[2021-08-17] MEDS: Docusate Sodium 100 MG Cap PO SCH ×3 (08:30→20:30)
[2021-08-17] MEDS: Losartan 50 MG Tab PO SCH (08:30)
[2021-08-17] MEDS: hydrALAZINE 25 MG Tab PO SCH ×2 (08:32→20:30)
[2021-08-17] MEDS: Celecoxib 200 MG Cap PO SCH ×2 (08:32→20:30)
[2021-08-17] MEDS: Azithromycin 125 MG in Sodium Chloride 0.9% 150 ML IV SCH ×2 (08:38→20:28)
[2021-08-17] MEDS: Hydrochlorothiazide 25 MG Tab PO SCH (08:46)
[2021-08-17] MEDS: CRANBERRY EXTRACT 500 MG PO SCH (08:47)
[2021-08-17] MEDS: Metoprolol Tartrate 50 MG Tab PO SCH ×2 (08:47→20:32)
[2021-08-17] MEDS: Sulfamethoxazole/Trimethoprim 800-160 MG Tab PO SCH (08:48)
[2021-08-17] MEDS ORDERED: Furosemide 20 MG/2 ML VIAL IVPUSH ONE (09:00)
[2021-08-17] MEDS: Pantoprazole 40 MG Tab.CR PO SCH (11:30)
[2021-08-18] MEDS: Dextrose 5%-Lactated Ringers 1,000 ML IV SCH (02:23)
[2021-08-18] MEDS: Acetaminophen 325 MG Tab PO SCH ×4 (02:23→20:58)
[2021-08-18] MEDS: Magnesium Sulfate/Water 2 GM in Premix Bag 1 BAG IV SCH (04:17)
[2021-08-18] MEDS ORDERED: Bisacodyl 5 MG Tab PO SCH (07:00)
[2021-08-18] MEDS ORDERED: Furosemide 20 MG/2 ML VIAL IVPUSH ONE (07:03)
[2021-08-18] MEDS: Pantoprazole 40 MG Tab.CR PO SCH (07:39)
--- NOTE | 2021-08-18 07:55 | PN ---
DATE OF SERVICE: 08/18/2021 SUBJECTIVE: Barby reports having more pain today. She is having a lot a "rumbling" in her abdomen. States that she has been passing flatus, has had a bowel movement. Does not like Ensure and does not really feel ready to go home. LABORATORY DATA: Today, BNP is 1890, AST 103, ALT 134, and potassium is 3.3. REVIEW OF SYSTEMS: Remainder of review of systems negative for any pertinent positives and negatives. OBJECTIVE: GENERAL: Barby is a pleasant 71-year-old female. She is alert and orientated. VITAL SIGNS: TPR is 97.6, 63, 16. Blood pressure 141/55. HEENT: Tongue is red with white patches indicative of thrush. NECK: Supple. HEART: Regular rate and rhythm. LUNGS: Clear. ABDOMEN: Aquacel dressing was changed yesterday that remains. There is no shadowing of dark red in the lower part of the incision. EXTREMITIES: Without peripheral edema. ASSESSMENT: 1. Flexible colonoscopy with injection of Domonique ink at proximal level of inflamed colon for persistent colonic diverticulitis and excoriated hemorrhoids. Date of procedure: 08/13/2021. Surgeon: Johnny Dan MD. 2. Exploratory laparotomy with: a. Rectosigmoid resection and coloproctostomy. b. Drainage of pericolonic abscess. c. Resection of peritoneal implants, proximal sigmoid colon x2. d. Mobilization of omentum into pelvis. POSTOPERATIVE DIAGNOSES: 1. Persistent diverticulitis and focal pericolonic abscess. 2. Peritoneal implant on surface of proximal sigmoid colon x2 (0.4 cm cystic and 1.2 cm solid). Date of procedure: 08/14/2021. Surgeon: Johnny Dan MD. 3. Delayed primary closure for open abdominal incision. Date of procedure: 08/16/2021. Surgeon: Johnny Dan MD. PLAN: 1. Dulcolax two tabs p.o. one time today. 2. Discontinue Zithromax. 3. MiraLAX 4 scoops in 12 ounces of Gatorade one time today. Potassium oral 20 mEq with meals t.i.d. today only. 4. Lasix 20 mg IV one time. 5. Labs; CBC, CMP, phos, and BNP in a.m. 6. Nystatin swish and swallow 5 mL q.i.d. 7. Saline lock IV. 8. We will evaluate p.r.n. or in a.m. Claudette Romo PA-C /[id number]
[2021-08-18] MEDS: Nystatin Susp 100,000 Unit/ML 5 ML UD Cup PO SCH ×4 (08:34→21:03)
[2021-08-18] MEDS: Celecoxib 200 MG Cap PO SCH ×2 (08:35→21:01)
[2021-08-18] MEDS: Potassium Chloride 20 MEQ Tab.ER PO SCH ×3 (08:35→21:01)
[2021-08-18] MEDS: Sulfamethoxazole/Trimethoprim 800-160 MG Tab PO SCH (08:35)
[2021-08-18] MEDS: Hydrochlorothiazide 25 MG Tab PO SCH (08:36)
[2021-08-18] MEDS: Docusate Sodium 100 MG Cap PO SCH ×2 (08:36→21:01)
[2021-08-18] MEDS: Losartan 50 MG Tab PO SCH (08:37)
[2021-08-18] MEDS: CRANBERRY EXTRACT 500 MG PO SCH (08:37)
[2021-08-18] MEDS: Metoprolol Tartrate 50 MG Tab PO SCH ×2 (08:39→21:01)
[2021-08-18] MEDS: hydrALAZINE 25 MG Tab PO SCH ×2 (08:41→20:59)
[2021-08-18] MEDS ORDERED: Polyethylene Glycol 3350 Powder 17 GM Packet PO ONE (09:00)
--- NOTE | 2021-08-18 09:16 | OR ---
DATE OF PROCEDURE: 08/16/2021 SURGEON: Johnny Dan MD PREOPERATIVE DIAGNOSIS: Open abdominal incision. POSTOPERATIVE DIAGNOSIS: Open abdominal incision. OPERATIVE PROCEDURE: Delayed primary closure of open abdominal incision. ANESTHESIA: Local plus IV sedation. INDICATION FOR PROCEDURE: The patient is now 48 hours status post a low anterior resection for persistent diverticular disease. The skin and subcutaneous tissue were felt to be high risk for wound infection if these were closed primarily, and given this the subcutaneous tissue was left open for a planned delayed primary closure at this time. Potential risks including bleeding and infection were reviewed, and the patient wishes to proceed. DETAILS OF PROCEDURE: The patient was taken to the operating room and placed in a supine position with the head up roughly 30 degrees in order to limit aspiration risk. The previous operative dressing was taken down and the wound was found to be clean. The wound was then prepped and draped and anesthetized with 1% lidocaine, mixed with Marcaine, and irrigated with meropenem-containing saline solution. Bilateral transverse abdominis plane blocks were placed by ultrasound guidance and the incision closed with 2 layers of 3-0 and 4- 0 Vicryl stitch deep and tanya for the skin. Dressing was applied. The patient was taken to the recovery room in satisfactory condition. There were no evident complications. Johnny Dan MD Job #: [id number]
--- NOTE | 2021-08-18 11:31 | PN ---
DATE OF SERVICE: 08/16/2021 The patient has been clinically stable overnight. Pain control remains quite good with the epidural catheter and we decided to leave this in one more day which will Gomez catheter stay in as well. She will be undergoing delayed primary closure of abdominal incision and will be starting diet and continue with some bowel stimulation, otherwise we will remove the epidural catheter and switch exclusively to oral pain medication tomorrow. Of note, her creatinine remains stable and may be we will start some nonsteroidal anti- inflammatory medication such as Celebrex for a few days upon withdrawal of the epidural catheter. With this, she will be undergoing the delayed primary closure later this morning. Johnny Dan MD Job #: [id number]
[2021-08-18] MEDS: Ondansetron 4 MG/2 ML SDV IVPUSH PRN (18:41)
[2021-08-19] MEDS: Acetaminophen 325 MG Tab PO SCH ×4 (02:45→21:04)
[2021-08-19] MEDS: Nystatin Susp 100,000 Unit/ML 5 ML UD Cup PO SCH ×4 (05:54→21:07)
[2021-08-19] MEDS: Pantoprazole 40 MG Tab.CR PO SCH (07:33)
[2021-08-19] MEDS: Metoclopramide 10 MG/2 ML SDV IV SCH ×2 (08:51→09:12)
[2021-08-19] MEDS: Celecoxib 200 MG Cap PO SCH ×2 (08:54→21:06)
[2021-08-19] MEDS: Docusate Sodium 100 MG Cap PO SCH ×2 (08:54→21:06)
[2021-08-19] MEDS: Sulfamethoxazole/Trimethoprim 800-160 MG Tab PO SCH (08:54)
[2021-08-19] MEDS: Bisacodyl 5 MG Tab PO SCH ×2 (08:55→21:06)
[2021-08-19] MEDS: CRANBERRY EXTRACT 500 MG PO SCH (08:55)
[2021-08-19] MEDS: Hydrochlorothiazide 25 MG Tab PO SCH (08:56)
[2021-08-19] MEDS: hydrALAZINE 25 MG Tab PO SCH ×2 (08:56→21:04)
[2021-08-19] MEDS: Losartan 50 MG Tab PO SCH (08:58)
[2021-08-19] MEDS: Metoprolol Tartrate 50 MG Tab PO SCH ×2 (08:59→21:07)
[2021-08-19] MEDS ORDERED: Potassium Chloride 20 MEQ Tab.ER PO ONE (09:00)
[2021-08-19] MEDS ORDERED: Furosemide 20 MG/2 ML VIAL IVPUSH ONE (09:00)
[2021-08-19] MEDS ORDERED: Metoclopramide 10 MG Tab PO ONE (09:30)
--- NOTE | 2021-08-19 13:41 | PN ---
DATE OF SERVICE: 08/19/2021 SUBJECTIVE: Barby reports that she has been quite nauseated and has not had any bowel movement. Lab work, hemoglobin was 9.2, and BNP was 1660. Creatinine was 1 and GFR was 55. Potassium was 3.7. Oral intake was 2020 and urine output was 2750. She has had in the past 24 hours, 8 bowel movements. REVIEW OF SYSTEMS: Remainder of review of systems negative for any pertinent positives and negatives. OBJECTIVE: GENERAL: Barby is a pleasant 71-year-old female. She is alert and orientated. VITAL SIGNS: TPR is 97.8, 72, 18, blood pressure 184/66 and rechecked at 170/64. HEENT: Negative. NECK: Supple. HEART: Regular rate and rhythm. LUNGS: Clear. ABDOMEN: Aquacel dressing on. There is shadowing of dark red drainage at the lower incision area. It is intact. Abdominal binder is on. EXTREMITIES: Without peripheral edema. ASSESSMENT: 1. Flexible colonoscopy with injection of Domonique Ink at proximal level of inflamed colon for persistent colonic diverticulitis and excoriated hemorrhoids. 2. Date of procedure: 08/13/2021. Surgeon: Johnny Dna MD. 3. Exploratory laparotomy with: a. Rectosigmoid resection and coloproctostomy. b. Drainage of pericolonic abscess. c. Resection of peritoneal implants, proximal sigmoid colon x2. d. Mobilization of omentum into pelvis. POSTOPERATIVE DIAGNOSES: 1. Persistent diverticulitis and focal pericolonic abscess. 2. Peritoneal implant on surface of proximal sigmoid colon x2 (0.4 cm cystic and 1.2 cm solid). 3. Date of procedure: 08/14/2021. Surgeon: Johnny Dan MD. 4. Delayed primary closure for open abdominal incision. Date of procedure: 08/16/2021. Surgeon: Johnny Dan MD. PLAN: 1. Dulcolax 10 mg tablets p.o. b.i.d. ordered, but may hold if diarrhea stools continue. The patient reported no bowel movements, but staff had charted 8. 2. Reglan 5 mg q.6 hours IV scheduled for nausea. 3. Lasix 20 mg IV 1 time. 4. Potassium chloride/Klor-Con 40 mEq p.o. 1 time. 5. Check CBC, CMP, mag, phos, and BNP in a.m. 6. We will evaluate p.r.n. or in a.m. Claudette Romo PA-C /[id number]
[2021-08-19] MEDS ORDERED: diphenhydrAMINE 25 MG Cap PO PRN (20:17)
[2021-08-20] MEDS: Acetaminophen 325 MG Tab PO SCH ×2 (03:46→07:27)
[2021-08-20] MEDS: Nystatin Susp 100,000 Unit/ML 5 ML UD Cup PO SCH ×2 (06:04→10:40)
[2021-08-20 07:26] VITALS: BP 165/75; PULSE 72
[2021-08-20] MEDS: Pantoprazole 40 MG Tab.CR PO SCH (07:28)
[2021-08-20] MEDS: hydrALAZINE 25 MG Tab PO SCH (08:08)
[2021-08-20] MEDS: Docusate Sodium 100 MG Cap PO SCH (08:09)
[2021-08-20] MEDS: Celecoxib 200 MG Cap PO SCH (08:10)
[2021-08-20] MEDS: Sulfamethoxazole/Trimethoprim 800-160 MG Tab PO SCH (08:10)
[2021-08-20] MEDS: Metoprolol Tartrate 50 MG Tab PO SCH (08:10)
[2021-08-20] MEDS: Losartan 50 MG Tab PO SCH (08:10)
[2021-08-20] MEDS: Bisacodyl 5 MG Tab PO SCH (08:11)
[2021-08-20] MEDS: CRANBERRY EXTRACT 500 MG PO SCH (08:11)
[2021-08-20] MEDS: Hydrochlorothiazide 25 MG Tab PO SCH (08:12)
[2021-08-20] MEDS ORDERED: Ketoconazole 2% Crm 30 GM Tube TOP SCH (11:00)
--- NOTE | 2021-08-21 11:04 | DISCH ---
PREOPERATIVE DIAGNOSES: 1. Persistent sigmoid colon diverticulitis with focal pericolonic abscess. 2. Peritoneal implant on surface of proximal small bowel x2. SECONDARY DIAGNOSES: 1. History of hypertension. 2. History of rheumatoid arthritis. 3. History of breast cancer with no known recurrence. 4. Chronic urinary retention. 5. Postoperative oral thrush. OPERATIVE PROCEDURES: 1. On 08/13/2021, flexible colonoscopy with injection of Domonique ink at proximal extent of colonic inflammation. 2. On 08/14/2021, exploratory laparotomy with: a. Rectosigmoid resection with coloproctostomy. b. Drainage of pericolonic abscess. c. Resection of peritoneal implants on proximal sigmoid colon x2. d. Mobilization of omentum into pelvis to limit adhesion formation between pelvic and abdominal wall and adjacent viscera. 3. On 08/16/2021, delayed primary closure of open abdominal incision. SUMMARY: This is a 71-year-old female with a 7-month history of diverticulitis that she was treated in the [facility] last winter with perforated diverticulitis and abscess formation. She presents now with some rectal bleeding along with persistent lower abdominal pain. CT scan obtained on 08/12/2021 showed what appeared to be some smoldering inflammation or abscess formation in the distal sigmoid colon associated with diverticular disease. She was admitted for initial colonoscopy to identify the bleeding source, rather which at this point appeared to be most likely to be hemorrhoids. The area of inflammation in the distal colon was associated with some gross purulent material coming from 2 of the adjacent diverticula in the distal sigmoid colon. The next day, the patient underwent the above-noted operation. Pathology is pending on this, but there is no evidence of any malignancy. Cultures from the abscess grew out Proteus mirabilis and Klebsiella oxytoca, which the patient would appear to have been clinically cleared off at this point. She did develop some oral thrush and will be sent home on Mycostatin swish and swallow 5 mL q.i.d. Otherwise, she is only requiring Tylenol for pain and is moving her bowels satisfactorily. Oral intake is satisfactory as well. She will be discharged home. Follow up with Dr. Dan at [facility] on 08/24/2021. Job #: [id number]
== END 2021-08-20 11:35 | disposition home or self-care (01) | DRG 330 ==
LOC: JP.SDSSCHI 09:29 → JP.SDS 09:29 → EDSTATUS 11:30 → JP.MS 12:00
PROVIDERS: ADMIT Surgery; ATTEND Surgery
PROC: 0DJD8ZZ Inspection of Lower Intestinal Tract, Via Natural or Artificial Opening Endoscopic (ICD-10-PCS; 2021-08-13)
PROC: 0D1N0ZP Bypass Sigmoid Colon to Rectum, Open Approach (ICD-10-PCS; principal; 2021-08-14)
PROC: 0DBP0ZZ Excision of Rectum, Open Approach (ICD-10-PCS; 2021-08-14)
PROC: 0DBN0ZZ Excision of Sigmoid Colon, Open Approach (ICD-10-PCS; 2021-08-14)
PROC: 0W9G0ZZ Drainage of Peritoneal Cavity, Open Approach (ICD-10-PCS; 2021-08-14)
PROC: 0DBW0ZZ Excision of Peritoneum, Open Approach (ICD-10-PCS; 2021-08-14)
PROC: 0WQF0ZZ Repair Abdominal Wall, Open Approach (ICD-10-PCS; 2021-08-16)
DX: K57.20 Diverticulitis of large intestine with perforation and abscess without bleeding (principal); B37.0 Candidal stomatitis; I10 Essential (primary) hypertension; M06.9 Rheumatoid arthritis, unspecified; R33.9 Retention of urine, unspecified; K21.9 Gastro-esophageal reflux disease without esophagitis; M81.0 Age-related osteoporosis without current pathological fracture; K64.9 Unspecified hemorrhoids; Z20.822 Contact with and (suspected) exposure to COVID-19; Z85.3 Personal history of malignant neoplasm of breast; Z88.5 Allergy status to narcotic agent; Z88.8 Allergy status to other drugs, medicaments and biological substances; Z98.49 Cataract extraction status, unspecified eye; Z87.440 Personal history of urinary (tract) infections; Z79.899 Other long term (current) drug therapy
CPT/HCPCS: 0241U; 36415; 80053; 83735; 83880; 84100; 85025; 85027; 86850; 86900; 86901; 87070; 87075; 87077; 87186; 87205; 93005; 94762; A9270-GY; C9113; J0171; J0456; J1100; J1200; J1940; J2185; J2250; J2370; J2405; J2704; J2710; J2765; J2795; J3010; J3475; J3480; J3490; J7050; J7121